=== PATIENT | male | born 1940 | race Caucasian/White ===

== ENCOUNTER 2017-09-11 10:57 | Day surgery (SDC) | payer MEDICARE ==
[2017-09-06 16:10] VITALS: BMI 28.0
[~2017-09-11 10:57] MED LIST: DEXAMETHASONE SOD PHOSPHATE 4 MG/ML 1 ML VIAL IV ONE; FAMOTIDINE 20 MG/2 ML VIAL IV ONE; LACTATED RINGERS 1,000 ML IV SCH; ONDANSETRON 4 MG/2 ML VIAL IVP ONE; ceFAZolin 1,000 MG in DEXTROSE/WATER 1 50ML.BAG IV ONE
[2017-09-11] MEDS ORDERED: MIDAZOLAM 2 MG/2 ML VIAL ONE (13:32)
[2017-09-11] MEDS ORDERED: SUCCINYLCHOLINE CHLORIDE VIAL 200 MG/10 ML VIAL IV ONE (13:32)
[2017-09-11] MEDS ORDERED: DEXAMETHASONE SOD PHOS (MDV) 100 MG/10 ML VIAL ONE (13:32)
[2017-09-11] MEDS ORDERED: fentaNYL (PF) 50 MCG/ML 2 ML AMP ONE (13:32)
[2017-09-11] MEDS ORDERED: PROPOFOL 10 MG/ML 20 ML VIAL IV ONE (13:32)
[2017-09-11] MEDS ORDERED: LIDOCAINE 1% INJ 10MG/ML (20 ML MDV) ONE (13:32)
[2017-09-11] MEDS ORDERED: LIDOCAINE 1%-EPI 1:100,000 20 ML VIAL SQ ONE (14:00)
[2017-09-11] MEDS ORDERED: BACITRACIN 500 UNIT/GM OINT 28.4 GM TUBE TOPICAL ONE (14:18)
[2017-09-11 14:33] VITALS: TEMP 97.9
--- NOTE | 2017-09-11 14:34 | P.OP ---
Date of Procedure: 09/11/17 Preoperative Diagnosis: Cervical lymphadenopathy Postoperative Diagnosis: Same Procedure(s) Performed: Excision biopsy left cervical lymph node Anesthesia: IGNACIO Surgeon: Choco Arcos Estimated Blood Loss (ml): 2 Pathology: other (Left upper jugular chain node) Condition: stable Disposition: PACU Indications for Procedure: This 77-year-old white male with chronic cervical lymphadenopathy. He had needle biopsy which did not show malignant cells however this did not rule out lymphoma. Operative Findings: Significant bilateral cervical lymphadenopathy left greater than right Description of Procedure: The patient was brought in the operative suite and placed in a supine position. The patient underwent induction of general anesthesia with oral endotracheal intubation without difficulty. Patient was prepped and draped in usual aseptic fashion. A left upper jugular chain node was picked as a node that would be readily accessible. A transverse incision was made left upper neck and carried sharply through the skin and subcutaneous tissue and platysma layer. A node was identified anterior to the sternocleidomastoid muscle and was dissected from the surrounding tissue grossly entirely. There were other matted nodes in the area also. This was a 2 cm node. Once this was excised hemostasis was noted to be excellent. This was superficial to the spinal accessory nerve which was identified and left intact. This was inferior and superficial to the marginal mandibular branch of the facial nerve which was also identified and left intact. Hemostasis was noted to be excellent. The platysma and subcutaneous layers were closed with inverted interrupted 3-0 Vicryl suture and skin closed with running locking 4-0 Prolene suture. Bacitracin ointment and a sterile dressing were placed. The patient was allowed to emerge from general anesthesia having tolerated procedure well and was extubated in the operating suite and transferred to postop recovery area in satisfactory.
[2017-09-11 15:03] VITALS: RESP 18
[2017-09-11 15:16] VITALS: BP 131/72; PULSE 92
== END 2017-09-11 15:34 | disposition home or self-care (01) ==
LOC: OR 10:57
PROVIDERS: ATTEND Otolaryngology
DX: C81.71 Other Hodgkin lymphoma, lymph nodes of head, face, and neck (principal); H40.9 Unspecified glaucoma; Z79.82 Long term (current) use of aspirin; Z79.899 Other long term (current) drug therapy; Z79.52 Long term (current) use of systemic steroids; Z79.51 Long term (current) use of inhaled steroids; Z96.642 Presence of left artificial hip joint
CPT/HCPCS: 88342; 88307; 88341; 87070; 87205; 87075; 87116; 87102; 87206; 38510; J2250; J0330; J1100 ×2; J2405; J2001; J3010; J0690; J2704